=== PATIENT | female | born 2000 | race Caucasian/White ===

== ENCOUNTER 2020-10-05 09:24 | Emergency (ER) | payer SELFPAY ==
[2020-10-05 09:27] VITALS: BP 131/81; PULSE 87; RESP 18; TEMP 36.8; O2SAT 100; BMI 26.4
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
[2020-10-05 10:40] VITALS: BP 110/81; PULSE 90; O2SAT 97
== END 2020-10-05 10:41 | disposition home or self-care (01) ==
PROVIDERS: Emergency Provider Physician Assistant; PCP Electrodiagnostic Medicine
DX: S93.491A Sprain of other ligament of right ankle, initial encounter (principal); V50.5XXA Driver of pick-up truck or van injured in collision with pedestrian or animal in traffic accident, initial encounter
CPT/HCPCS: 12345; 73610; 99281; 99282

== ENCOUNTER 2020-10-10 13:26 | Outpatient (CLI) | payer SELFPAY ==
--- NOTE | 2020-10-10 13:33 | XRR_ITS ---
PROCEDURE INFORMATION: Exam: XR Right Wrist Exam date and time: 10/10/2020 1:36 PM Age: 20 years old Clinical indication: Pain; Wrist; Right; Additional info: Pain in R wrist TECHNIQUE: Imaging protocol: XR Right wrist. Views: 3 or more views. COMPARISON: No relevant prior studies available. FINDINGS: Bones/joints: No acute osseous pathology. Anatomic alignment. Soft tissues: Unremarkable. XR/XR wrist RT min 3V* [id number] IMPRESSION: No acute osseous pathology.
== END 2020-10-10 13:27 | disposition home or self-care (01) ==
LOC: RAD 13:30
PROVIDERS: PCP Electrodiagnostic Medicine; Visit Provider Electrodiagnostic Medicine
DX: M25.531 Pain in right wrist (principal); M25.571 Pain in right ankle and joints of right foot
CPT/HCPCS: 73110

== ENCOUNTER 2021-01-14 15:07 | Emergency (ER) | payer SELFPAY ==
[2021-01-14 15:44] VITALS: BP 134/89; PULSE 100; RESP 18; TEMP 37.1; O2SAT 100; BMI 27.3
== END 2021-01-14 18:46 | disposition left against medical advice (07) ==
PROVIDERS: Emergency Provider Family Medicine; PCP Electrodiagnostic Medicine
DX: Z53.21 Procedure and treatment not carried out due to patient leaving prior to being seen by health care provider (principal)
CPT/HCPCS: 73080; 73562

== ENCOUNTER 2021-01-30 15:42 | Outpatient (CLI) | payer BC, SELFPAY ==
--- NOTE | 2021-01-30 | USCV_ITS ---
Domi Lozoya Age: 20 Gender: F : 2000 Exam Date: 01/30/2021 15:58 Ordering Phys: Marielle SmallsP RECHECKER Technologist: EVELIA [place]am [place] [facility] [place] [facility] [place]ication: LEFT LEG PAIN HISTORY: Left leg pain PROCEDURES: Venous duplex imaging was performed in only the left lower extremity. The following venous structures were evaluated: common femoral vein, profunda vein, proximal portion of the greater saphenous vein, superficial femoral vein, and the popliteal vein. In addition, the posterior tibial and peroneal trunk were evaluated. Serial compression, augmentation maneuvers, and spectral Doppler flow evaluation were performed. FINDINGS: Normal 2-D Doppler and augmentation and compressibility throughout the lower extremity venous structures. Additional imaging through the proximal calf veins also reveals no thrombus. Limited evaluation of the greater saphenous vein is patent with no thrombus. CONCLUSIONS No DVT left lower extremity. Dr. Ayanna Peralta DO (Electronically Signed) Final Date: 31 January 2021 10:41 S
== END 2021-01-30 15:43 | disposition home or self-care (01) ==
LOC: RAD 15:44
PROVIDERS: PCP Electrodiagnostic Medicine; Visit Provider Nurse Practitioner
DX: M79.605 Pain in left leg (principal)
CPT/HCPCS: 93971

== ENCOUNTER 2022-04-22 08:37 | Outpatient (CLI) | payer BC, SELFPAY ==
--- NOTE | 2022-04-22 08:45 | FL_ITS ---
WS: [id number] FL barium swallow [id number] REASON FOR EXAM: GASTRO ESOPHAGEAL REFLUX DZ W/O ESOPHAGITIS/ABD PAIN FLUOROSCOPY TIME: 2min [id number] # OF SPOT FILMS: Multiple Swallowing of barium was evaluated from the oropharynx to the gastric fundus in the upright, prone, a nd supine positions. The swallowing was fluoroscopically evaluated and monitored and multiple spot fi lms obtained. FINDINGS: The oral and hypopharynx are unremarkable. Cervical esophagus was normal. No extrinsic or intrinsic or extrinsic mass effect on the thoracic esophagus. Normal motility. There was a small sliding hiatal hernia without significant Schatzki ring or esophageal stricture. No reflux was identified in either the prone LERNER or supine POLISH positions. FL/FL barium swallow [id number] IMPRESSION: Small sliding hiatal hernia without other abnormality identified.
== END 2022-04-22 08:38 | disposition home or self-care (01) ==
PROVIDERS: Visit Provider Otolaryngology
DX: K21.9 Gastro-esophageal reflux disease without esophagitis (principal); K44.9 Diaphragmatic hernia without obstruction or gangrene
CPT/HCPCS: 74220

== ENCOUNTER 2024-06-19 10:01 | Emergency (ER) | payer OTHER, SELFPAY ==
[2024-06-19 10:10] VITALS: BP 119/82; PULSE 67; RESP 16; TEMP 36.6; O2SAT 99; BMI 25.9
--- NOTE | 2024-06-19 10:20 | ED_ITS ---
HPI - 2 General: Chief complaint: Vaginal Bleeding Stated complaint: pelvic pain sent by Time Seen by Provider: 06/19/24 10:09 History of Present Illness: 24-year-old G2, P0 female who recently m iscarried at 6 weeks gestation. She was seen yesterday had retained products of conception caught on the cervix was removed by her primary care doctor in the office after which she had some bleeding cramping it abruptly stopped she says she feels like she has more pressure in her abdomen was concerned something else may be clot in the cervix. She is not having any cramping anymore and the bleeding is stopped she denies dysuria urgency or frequency or flank pain. Associated symptoms: Deny abdominal pain or dysuria Related Data Home Medications Medication Instructions Recorded Confirmed meloxicam 15 mg tablet 15 mg PO DAILY@0800 10/05/20 10/31/23 omeprazole 40 mg capsule,delayed 40 mg PO DAILY@0800 10/05/20 10/31/23 release sennosides 8.6 mg-docusate sodium 1 tab PO DAILY@0800 10/05/20 10/31/23 50 mg tablet (Stimulant Laxative Plus) Previous Rx's Medication Instructions Recorded mupirocin 2 % topical ointment 1 applic topical BID 5 days #22 01/14/21 grams ondansetron 8 mg disintegrating 8 mg PO Q8H PRN nausea and 10/31/23 tablet vomiting #10 tabs Allergies Allergy/AdvReac Type Severity Reaction Status Date / Time No Known Allergies Allergy Verified 06/19/24 10:09 Review of Systems 2 Const: Denies: fever(s) or chills Card: Denies: chest pain Resp: Denies: dyspnea GI: Denies: abdominal pain : Reports: vaginal bleeding (Resolved) and pelvic pain (Resolved.); Denies: dysuria, urinary frequency or urinary urgency Musc: Denies: neck pain or back pain Skin/Breast: Denies: rash Physical Exam 2 Const: COMMON NORMALS: no acute distress GENERAL APPEARANCE: cooperative and comfortable ORIENTATION/CONSCIOUSNESS: Yes awake, Yes oriented to person, Yes oriented to place and Yes oriented to time HENMT: COMMON NORMALS: normocephalic, atraumatic and hearing grossly normal bilaterally HEAD & SCALP: normocephalic and atraumatic Resp: COMMON NORMALS: normal respiratory effort, No retractions, No use of accessory muscles and clear to auscultation bilaterally AUSCULTATION: clear to auscultation bilaterally Cardio: COMMON NORMALS: regular rate, regular rhythm and No murmurs present (Cardio) RATE: regular rate RHYTHM: regular rhythm GI: COMMON NORMALS: Soft to palpation and No hepatosplenomegaly present A USCULTATION: Yes normoactive bowel sounds PALPATION: Yes Soft to palpation, No Tenderness to palpation present (GI), No Guarding due to palpation present (GI) and Yes No hepatosplenomegaly present : OTHER: Pelvic exam cervix visualized there is some fresh blood at the vaginal vault there is no active clots no POC in the os. Extremity: COMMON NORMALS: normal to inspection, capillary refill normal, no clubbing, cyanosis or edema, no calf tenderness and no pedal edema Neuro: SENSORIUM/ORIENTATION: Yes oriented to person, Yes oriented to place and Yes oriented to time Skin: COMMON NORMALS: no rashes or lesions noted GENERAL SKIN EXAM: no rashes or lesions noted Course 2 Vital Signs: Vital signs: Vital Signs Temperature 97.9 F 06/19/24 10:10 Pulse Rate 82 06/19/24 10:55 Respiratory Rate 16 06/19/24 10:10 Blood Pressure 119/82 06/19/24 10:55 Pulse Oximetry 100 06/19/24 10:55 Oxygen Delivery Me thod Room Air 06/19/24 10:10 MDM - OB/Uterine Contractions Medical Decision Making No active bleeding at this time. Will discharge home her hemoglobin is stable beta-hCG is 736. Follow-up with Dr. Conde next week. Return if has any increased bleeding. Lab Data 06/19/24 11:00 06/19/24 11:00 Laboratory Results WBC 4.95 10^3/uL (3.29-11.43) 06/19/24 11:00 RBC 4.26 10^6/uL (3.85-5.65) 06/19/24 11:00 Hgb 13.10 g/dL (11.27-16.99) 06/19/24 11:00 Hct 40.4 % (36-47) 06/19/24 11:00 MCV 94.8 fl (85-98) 06/19/24 11:00 MCH 30.8 pg (27-33) 06/19/24 11:00 MCHC 32.4 g/dL (30-55) 06/19/24 11:00 RDW 12.4 % (12.1-15.1) 06/19/24 11:00 Plt Count 338 10^3/cmm (157-399) 06/19/24 11:00 MPV 9.3 fL (7.4-10.4) 06/19/24 11:00 Neut % (Auto) 56.0 % 06/19/24 11:00 Lymph % (Auto) 32.3 % 06/19/24 11:00 Mitchell % (Auto) 8.9 % 06/19/24 11:00 Eos % (Auto) 2.0 % 06/19/24 11:00 Baso % (Auto) 0.6 % 06/19/24 11:00 Neut # (Auto) 2.77 10^3/uL (1.8-7.7) 06/19/24 11:00 Lymph # (Auto) 1.6 10^3/uL (0.8-4.8) 06/19/24 11:00 Mitchell # (Auto) 0.4 10^3/uL (0.2-0.9) 06/19/24 11:00 Eos # (Auto) 0.1 10^3/uL (0.0-0.8) 06/19/24 11:00 Baso # (Auto) 0.0 10^3/uL (0.0-0.1) 06/19/24 11:00 Nucleated RBC % (auto) 0 % 06/19/24 11:00 Nucleated RBCs # 0.0 /100WBC 06/19/24 11:00 Sodium 139 mmol/L (136-145) 06/19/24 11:00 Potassium 4.6 mmol/L (3.5-5.1) 06/19/24 11:00 Chloride 103 mmol/L (98-107) 06/19/24 11:00 Carbon Dioxide 26 mmol/L (22-29) 06/19/24 11:00 Anion Gap 14.6 (5-19) 06/19/24 11:00 BUN 4 mg/dL (6-20) L 06/19/24 11:00 Creatinine 0.6 mg/dL (0.5-0.9) 06/19/24 11:00 GFR Calculation 120.8 mL/min (90-130) 06/19/24 11:00 Glucose 100 mg/dL (65-115) 06/19/24 11:00 Calculated Osmolality 285 mOsm/kg (285-295) 06/19/24 11:00 Calcium 8.9 mg/dL (8.5-10.5) 06/19/24 11:00 Total Bilirubin 0.3 mg/dL (0.15-1.2) 06/19/24 11:00 AST 17 U/L (0-32) 06/19/24 11:00 ALT 15 U/L (0-33) 06/19/24 11:00 Alkaline Phosphatase 58 U/L (35-105) 06/19/24 11:00 Total Protein 7.5 g/dL (6.6-8.7) 06/19/24 11:00 Albumin 4.5 g/dL (3.5-5.2) 06/19/24 11:00 Globulin 3.0 g/dL (1.3-4.6) 06/19/24 11:00 Ser , Semi-Qnt 736.80 mIU/mL 06/19/24 11:00 No radiology studies performed this visit Discharge Plan Discharge Patient Disposition: Home Clinical Impression: Spontaneous Condition: Stable Prescriptions: No Action mupirocin 2 % ointment 1 applic topical BID 5 Days Qty: 22 0RF ondansetron 8 mg tablet,disintegrating 8 mg PO Q8H PRN (Reason: nausea and vomiting) Qty: 10 0RF meloxicam 15 mg tablet 15 mg PO DAILY@0800 Stimulant Laxative Plus 8.6-50 mg tablet 1 tab PO DAILY@0800 omeprazole 40 mg capsule,delayed release(DR/EC) 40 mg PO DAILY@0800 Discharge Orders: Discharge ED (Routine); Ordered 06/19/24 Ordered By: Wade Callahan Discharge Diet: Usual diet Discharge Activity: Resume usual activity Patient Instructions: Opioid Safety, Pain Management Activity Restrictions/Additional Instructions: Thank you for choosing [facility] for your healthcare needs today. It is very important that you follow up as instructed or that you return to the Emergency Department should you have concerns or if your condition changes or worsens in any way. You were seen in the emergency room with pelvic cramping. On pelvic exam there was still some bleeding from the cervix but there was no tissue within the cervical os. Suspect she will continue to have cramping through the weekend. Your hemoglobin was stable. Follow-up with Dr. Conde as previously scheduled. If bleeding worsens or pain becomes uncontrollable return to the emergency room Coding Level of Care Code ED Concrete Pump Operator for Dalila Bueno
[2024-06-19 10:55] VITALS: BP 119/82; PULSE 82; O2SAT 100
[2024-06-19 11:06] LABS: Basophils % 0.6 %; Eosinophils # 0.1 10^3/uL (0.0-0.8); Hematocrit 40.4 % (36-47); Lymphocytes # 1.6 10^3/uL (0.8-4.8); Lymphocytes % 32.3 %; Mean Corpuscular HGB Conc 32.4 g/dL (30-55); Mean Corpuscular Hemoglobin 30.8 pg (27-33); Mean Corpuscular Volume 94.8 fl (85-98); Mean Platelet Volume 9.3 fL (7.4-10.4); Monocytes # 0.4 10^3/uL (0.2-0.9); Monocytes % 8.9 %; Neutrophils # 2.77 10^3/uL (1.8-7.7); Nucleated Red Blood Cells % 0 %; Platelet Count 338 10^3/cmm (157-399); Red Blood Count 4.26 10^6/uL (3.85-5.65); Red Cell Distribution Width 12.4 % (12.1-15.1); White Blood Count 4.95 10^3/uL (3.29-11.43)
[2024-06-19 11:32] LABS: Alanine Aminotransferase 15 U/L (0-33); Albumin Level 4.5 g/dL (3.5-5.2); Alkaline Phosphatase 58 U/L (35-105); Anion Gap 14.6 (5-19); Aspartate Amino Transferase 17 U/L (0-32); Blood Urea Nitrogen 4 mg/dL (6-20); Calcium 8.9 mg/dL (8.5-10.5); Carbon Dioxide 26 mmol/L (22-29); Chloride 103 mmol/L (98-107); Glomerular Filtration Rate 120.8 mL/min (90-130); Glucose 100 mg/dL (65-115); Osmolality Calculated 285 mOsm/kg (285-295); Potassium 4.6 mmol/L (3.5-5.1); Sodium 139 mmol/L (136-145); Total Bilirubin 0.3 mg/dL (0.15-1.2); Total Protein 7.5 g/dL (6.6-8.7)
== END 2024-06-19 11:50 | disposition home or self-care (01) ==
PROVIDERS: Emergency Provider Family Medicine
DX: O03.9 Complete or unspecified spontaneous abortion without complication (principal)
CPT/HCPCS: 36415; 80053; 84702; 85025; 99283

== ENCOUNTER 2024-06-25 05:52 | Day surgery (SDC) | payer OTHER, SELFPAY ==
[2024-06-25] VITALS (10 sets, daily range): BP systolic 87–113; BP diastolic 49–85; PULSE 69–100; RESP 14–20; TEMP 36.1–36.6; O2SAT 96–100; BMI 25.9
[2024-06-25] MEDS: sodium chloride 0.9% 1,000 ML 30 ML IV (06:11)
--- NOTE | 2024-06-25 06:34 | ANES.PREANE2 ---
Pre-Anesthetic Assessment Height/Weight: Height 5 ft Weight 133 lb Temp Pulse Resp BP Pulse Ox O2 Del Method 97.6 F 78 18 113/73 98 Room Air 06/25/24 06:04 06/25/24 06:04 06/25/24 06:04 06/25/24 06:04 06/25/24 06:04 06/25/24 06:06 Preop Diagnosis: Spontaneous Operation Date: 06/25/24 07:00 Proposed Procedures p Dilation And Curettage (D&C)(Not Applicable) - Irving Conde MD Was Beta Ling taken within 24 hours: N/A Was Clonidine taken within 24 hours: N/A Last intake: Intake Last Liquid Date 06/24/24 Last Liquid Time 19:30 Last Solid Date 06/24/24 Last Solid Time 19:30 Social No alcohol and No tobacco Exam alert, oriented x 3, clear to auscultation bilaterally and regular rate & rhythm Airway Submandibular: within normal limits Cervical ROM: within normal limits Mallampati: Class I Dentition: full Anesthetic Plan ASA status: 2 Anesthesia: General Other: Patient has no prior issues with anesthesia NPO since yesterday History of GERD, on omeprazole Spontaneous , measuring 6 weeks but patient states she should be around 9-10 weeks Denies any pulmonary or cardiac issues METs greater than 4 Labs 06/19/2024 WNL Plan for general anesthesia with LMA Medications/Allergies Home Medications Medication Instructions Recorded Confirmed Last Taken Type omeprazole 40 mg capsule,delayed 40 mg PO DAILY@0800 10/05/20 06/24/24 06/23/24 History release ondansetron 8 mg disintegrating 8 mg PO Q8H PRN nausea and 10/31/23 06/25/24 Unknown Rx tablet vomiting #10 tabs ibuprofen 800 mg tablet 800 mg PO TID 06/24/24 06/24/24 06/24/24 History Allergies Allergy/AdvReac Type Severity Reaction Status Date / Time No Known Allergies Allergy Verified 06/25/24 06:02 Current Medications Generic Name Dose Route Start Last Admin Trade Name Freq PRN Reason Stop Dose Admin Sodium Chloride 1,000 mls @ 30 mls/hr 06/25/24 06:00 06/25/24 06:11 Sodium Chloride 0.9% IV 06/26/24 05:59 30 mls/hr .Q24H JUDY Administration Data Anesthesia Cardiac Studies: No Data to Display
--- NOTE | 2024-06-25 06:59 | W.PM.OPSUD ---
Surgery/Procedure H&P Update DATE OF PROCEDURE: June 25, 2024 DATE H&P PERFORMED: 06/23/24 CHANGES TO PREVIOUS DOCUMENTATION: None PREOP DIAGNOSIS: Missed /miscarriage PLANNED PROCEDURE: Operation Date: 06/25/24 07:00 Proposed Procedures p Dilation And Curettage (D&C)(Not Applicable) - Irving Conde MD
--- NOTE | 2024-06-25 07:35 | PM.OP ---
Operative Report Date of procedure: June 25, 2024 Pre-op diagnosis: Missed /miscarriage Post-op diagnosis: Same Procedure done: Dilation and curettage with suction Specimens removed/disposition: Products of conception Surgeon: Irving Conde MD Anesthesia: General Estimated blood loss (mL): 100 Complications: None Findings: Intrauterine products of conception Procedure: The patient was brought back to the OR where general anesthesia was performed she was prepped and draped in usual fashion and placed in the dorsolithotomy position. A sterile speculum was placed. The tenaculum was used by grabbing the anterior lip of the cervix in usual fashion. Sound was used. Dilation was performed. The intrauterine cavity was then curettaged until uterine cry was noted in all 4 quadrants. Suction curettage was also performed. Proximal of conception was collected and sent to pathology. The patient did have completed that was noted to be within the cervix. While initially had a brisk bleed, it stopped with pressure and there was no bleeding noted and the procedure was done. I waited for about 3 to 5 minutes to make sure no more bleeding occurred. The tenaculum was removed and no bleeding was noted from the holes resulting from the tenaculum. The patient was a stable condition.
--- NOTE | 2024-06-25 09:00 | ANE.PACU2 ---
Inpatient post-anesthesia follow up: Airway intact: Yes Vital signs: Temperature 97.0 F Pulse Rate 71 Respiratory Rate 18 Blood Pressure 104/67 Pulse Oximetry 100 Oxygen Delivery Me thod Room Air Oxygen Flow Rate 6 Fraction of Inspir ed Oxygen Hydration adequate: Yes Nausea and vomiting: No Pain level: 1 Mental status: Baseline
== END 2024-06-25 09:00 | disposition home or self-care (01) ==
PROVIDERS: PCP Nurse Practitioner Family; Visit Provider Family Medicine
PROC: (CPT 58120; principal; 2024-06-25 07:00)
DX: O02.1 Missed abortion (principal)
CPT/HCPCS: 59820; 88305; J0131; J1100; J1885; J2250; J2405; J2704; J3010; J7030

== ENCOUNTER → 2025-08-23 09:26 | Outpatient (BNVA) | payer BC, SELFPAY | PROVIDERS: PCP Nurse Practitioner Family; Visit Provider Nurse Practitioner | DX: R50.9 Fever, unspecified (principal) | CPT/HCPCS: 87071; 87400; 87426; 87880 ==

== ENCOUNTER → 2025-08-29 15:25 | Outpatient (BNVA) | payer BC, SELFPAY | PROVIDERS: PCP Nurse Practitioner Family; Visit Provider Emergency Medicine | DX: J06.9 Acute upper respiratory infection, unspecified (principal) | CPT/HCPCS: 87400; 87426 ==